=== PATIENT | male | born 1970 | race Caucasian/White ===

== ENCOUNTER 2023-09-11 08:56 | Day surgery (SDC) | payer BC ==
[2023-09-10 12:53] LABS: Potassium 4.3 mEq/L (3.5-5.1)
[2023-09-11] MEDS ORDERED: CEFAZOLIN SODIUM 2 GM/VIAL ONE (09:35)
[2023-09-11] MEDS ORDERED: Ringers Lactate 1,000 ML IV ONE (09:35)
[2023-09-11] MEDS ORDERED: BUPIVACAINE 0.25% PF 30 ML VIAL ONE (09:40)
[2023-09-11] MEDS ORDERED: KETOROLAC 30 MG/ML INJ ONE (10:00)
[2023-09-11] MEDS ORDERED: LIDOCAINE 2% MPF 5 ML VIAL ONE (10:00)
[2023-09-11] MEDS ORDERED: propofoL 200 MG/20 ML VIAL IV ONE (10:00)
[2023-09-11] MEDS ORDERED: MIDAZOLAM HCL 2 MG/2 ML INJ ONE (10:00)
[2023-09-11] MEDS ORDERED: FENTANYL CITR 100 MCG/2 ML ONE (10:00)
[2023-09-11] MEDS ORDERED: ONDANSETRON 4 MG/2 ML VIAL ONE (10:01)
[2023-09-11] MEDS ORDERED: LIDOCAINE HCL/EPINEPHRINE 20 ML MDV ONE (11:03)
--- NOTE | 2023-09-11 12:11 | P.OP ---
Preoperative diagnosis: LEFT Wrist Volar Radial Ganglion Cyst Postoperative diagnosis: LEFT Wrist Volar Radial Ganglion Cyst Primary procedure: Excision of LEFT Wrist Volar Radial Ganglion Cyst Anesthesia: GETA + Local Estimated blood loss: <10cc Specimen: Ganglion Cyst Capsuel Findings: LEFT Wrist Volar Radial Ganglion Cyst - Rad Art adhesion, extend to joint Complications: None Implants: Surgicel 1mm x 3 mm Transferred to: Recovery Room Condition: Good
[2023-09-11] MEDS: MORPHINE 4 MG/ML SYR ONE ×2 (12:45→12:53)
[2023-09-11] MEDS ORDERED: HYDROCODONE/APAP 10/325 TAB ONE (13:41)
--- NOTE | 2023-09-11 13:54 | EKG ---
Test Date: 2023-09-10 Test Time: 12:31:22 [employer] Specialist: ISABELA MEASUREMENT RESULTS: Intervals: Rate: 73 LA: 150 QRSD: 80 QT: 384 QTc: 423 [place]: P: 82 LA: 150 QRS: 78 T: 84 INTERPRETIVE STATEMENTS: Normal sinus rhythm Normal ECG No previous ECG available for comparison Electronically Signed On 09-11-23 13:51:05 CDT by Ayden Gaines
[2023-09-11 14:06] VITALS: BP 129/85; TEMP 96.5; O2SAT 97
--- NOTE | 2023-09-11 21:11 | OP ---
Date of Procedure: 09/11/2023 Surgeon: Luis Alberto Verde MD, Preoperative Diagnosis: Left wrist volar radial ganglion cyst. Postoperative Diagnosis: Left wrist volar radial ganglion cyst. Procedure Performed: Excision of left wrist volar radial ganglion cyst. Anesthesia: General endotracheal plus local, 1% lidocaine with epinephrine. Estimated Blood Loss: Less than 10 cc. Specimen: Ganglion cyst capsule. Findings: 1.Left volar radial ganglion cyst. 2.Cyst was adhesed to small branch of radial artery, which traversed over the anterior surface, whic h had to be ligated. 3.The cyst extended into the joint capsule. Complications: None. Implants: Surgicel 1 mm x 3 mm. Disposition: Patient was transferred to recovery room in good condition. Procedure In Detail: After informed consent was obtained, patient was brought to the operating room, prepped and draped in the usual sterile fashion. After adequate anesthesia was achieved, I made a l inear incision along the volar aspect of the wrist medial to the radial artery and dissected down usi ng needle-tip electrocautery on minimal setting down to subcutaneous tissues and predominantly used b mariana dissection to circumferentially dissect out the ganglion cyst, which was identified. There were small branches of the radial artery, which were tributaries extending up to and over the anterior vences rface of the ganglion cyst. These were individually tied off using 5-0 Prolene sutures with good hem ostasis at this point. The ganglion cyst was then circumferentially dissected predominantly bluntly down to the joint capsule and was gently ligated. The ganglion cyst portions were sent off for patho logic examination. All ganglion material was removed. The area was copiously irrigated. No hemosta tic measures required at this point. I then closed the defect using 5-0 PDS suture over the remainin g capsule. I then irrigated the area once again. No additional hemostatic measures were required. I palpated the radial artery and ulnar artery, both had good pulse throughout the procedure. I then proceeded to close the deep dermal plane using interrupted 4-0 Vicryl suture and skin was closed with a 4-0 Monocryl fashion in a running fashion, Dermabond placed over top. Patient tolerated the proce dure well without evidence of complication and transferred to PACU in good condition. All counts wer e correct at the end of the case. TK/MODL Voice ID: [id number] Report ID: [id number]
== END 2023-09-11 14:05 | disposition home or self-care (01) ==
LOC: OR 08:56
PROVIDERS: ATTEND Surgery
PROC: 0JBH0ZZ Excision of Left Lower Arm Subcutaneous Tissue and Fascia, Open Approach (ICD-10-PCS; principal; 2023-09-11 14:45)
DX: M67.432 Ganglion, left wrist (principal); F32.A Depression, unspecified; F17.210 Nicotine dependence, cigarettes, uncomplicated; B20 Human immunodeficiency virus [HIV] disease
CPT/HCPCS: 93005; 80048; 36415; 88304; 25111; J2704; J2001; J2250; J3010; J2405; J7120